=== PATIENT | male | born 1970 | race Caucasian/White ===

== ENCOUNTER 2017-04-13 14:16 | Emergency (ER) | payer OTHER ==
[~2017-04-13] VITALS: Ht 180.3 cm; Wt 113.4 kg
[~2017-04-13 14:16] MED LIST: TRAMADOL 50 MG50 MG PO
[2017-04-13] MEDS ORDERED: CYMBALTA20 MG PO (14:20)
[2017-04-13] MEDS ORDERED: ABILIFY10 MG PO (14:21)
[2017-04-13] MEDS ORDERED: PRINIVIL20 M1 PO (14:21)
[2017-04-13] MEDS ORDERED: MEDROLDOSEPACK PO (14:57)
[2017-04-13 15:13] VITALS: BP 118/94
== END 2017-04-13 15:15 | disposition home or self-care (01) ==
LOC: ER 14:16
DX: M25.521 Pain in right elbow (principal); M77.9 Enthesopathy, unspecified; M70.841 Other soft tissue disorders related to use, overuse and pressure, right hand; Z88.6 Allergy status to analgesic agent; Y93.89 Activity, other specified

== ENCOUNTER 2017-12-27 08:09 | Emergency (ER) | payer OTHER ==
[~2017-12-27] VITALS: Ht 180.3 cm; Wt 113.4 kg
[~2017-12-27 08:09] MED LIST changes: +ABILIFY10 MG PO; +CYMBALTA20 MG PO; +MEDROLDOSEPACK PO; +PRINIVIL20 M1 PO
[2017-12-27] MEDS ORDERED: SUMATRIPTA6 MG/0.5 M SUBQ (08:20)
[2017-12-27] MEDS ORDERED: LISINOPRIL20 MG PO (08:20)
[2017-12-27] MEDS ORDERED: CYMBALTA60 MG PO (08:37)
[2017-12-27] MEDS ORDERED: ARIPIPRAZOLE5 MG PO (08:37)
[2017-12-27] MEDS ORDERED: BUSPIRONE HCL10 MG PO (08:37)
[2017-12-27] MEDS ORDERED: TRAZODONE HCL50 MG PO (08:38)
[2017-12-27] MEDS ORDERED: MS CONTIN 30 MG30 M1 PO (08:39)
[2017-12-27] MEDS ORDERED: NAPROSYN500 MG PO (08:39)
[2017-12-27] MEDS ORDERED: OXYCODONE HCL10 MG PO (08:39)
[2017-12-27] MEDS ORDERED: PROMS25 WY RECTAL (09:10)
[2017-12-27] MEDS ORDERED: PHENERGAN 25 MG25 M1 PO (09:10)
[2017-12-27] MEDS ORDERED: BUTALB-APAP-CA1 EACH PO (09:22)
[2017-12-27 09:31] VITALS: BP 120/83
== END 2017-12-27 09:32 | disposition home or self-care (01) ==
LOC: ER 08:09
DX: G43.909 Migraine, unspecified, not intractable, without status migrainosus (principal); R11.0 Nausea; Z88.6 Allergy status to analgesic agent

== ENCOUNTER 2017-12-30 20:54 | Emergency (ER) | payer OTHER ==
[~2017-12-30] VITALS: Ht 180.3 cm; Wt 113.4 kg
[~2017-12-30 20:54] MED LIST changes: +ARIPIPRAZOLE5 MG PO; +BUSPIRONE HCL10 MG PO; +BUTALB-APAP-CA1 EACH PO; +CYMBALTA60 MG PO; +LISINOPRIL20 MG PO; +MS CONTIN 30 MG30 M1 PO; +NAPROSYN500 MG PO; +OXYCODONE HCL10 MG PO; +PHENERGAN 25 MG25 M1 PO; +PROMS25 WY RECTAL; +SUMATRIPTA6 MG/0.5 M SUBQ; +TRAZODONE HCL50 MG PO
[2017-12-30 21:52] LABS: ABSOLUTE NEUTROPHILS 4.3 thou/uL (1.4-8.2); BASOPHILS 1.3 % (0.0-2.0); EOSINOPHILS 2.2 % (0.0-3.0); HEMATOCRIT 41.5 % (42.0-52.0); HEMOGLOBIN 14.5 gm/dL (14.0-18.0); LYMPHOCYTES 27.9 % (24.0-44.0); MCH 32.4 pg (26.0-34.0); MCHC 34.8 g/dL (28.0-37.0); MCV 93.3 fL (80.0-100.0); MONOCYTES 6.8 % (1.0-8.0); PLATELET COUNT 465 thou/uL (150-400); POLYS 61.8 % (36.0-66.0); RBC 4.45 mil/uL (4.50-6.00); RDW 14.5 % (10.5-14.5)
[2017-12-30 22:03] LABS: CALCIUM 8.6 mg/dL (8.5-10.1); CREATININE 1.2 mg/dL (0.7-1.3); POTASSIUM 4.3 mmol/L (3.5-5.1)
[2017-12-30] MEDS ORDERED: FIORINAL 50-321 EACH PO ×2 (22:26→22:37)
[2017-12-30 22:44] VITALS: BP 118/85
== END 2017-12-30 22:44 | disposition home or self-care (01) ==
LOC: ER 20:54
PROVIDERS: Physician Assistant
DX: R51 Headache (principal); R11.0 Nausea; M54.9 Dorsalgia, unspecified; G89.29 Other chronic pain; Z88.6 Allergy status to analgesic agent; Z88.8 Allergy status to other drugs, medicaments and biological substances

== ENCOUNTER 2018-01-22 11:47 | Emergency (ER) | payer OTHER ==
[~2018-01-22] VITALS: Ht 180.3 cm; Wt 113.4 kg
[~2018-01-22 11:47] MED LIST changes: +FIORINAL 50-321 EACH PO
[2018-01-22 11:51] VITALS: BP 159/113
[2018-01-22] MEDS ORDERED: PHENERGAN 25 MG25 M1 PO (12:02)
[2018-01-22] MEDS ORDERED: FIORINAL CAPSUL1 CA1 PO (12:02)
== END 2018-01-22 12:19 | disposition home or self-care (01) ==
LOC: ER 11:47
DX: G43.909 Migraine, unspecified, not intractable, without status migrainosus (principal); M54.9 Dorsalgia, unspecified; G89.29 Other chronic pain; Z90.49 Acquired absence of other specified parts of digestive tract; Z88.8 Allergy status to other drugs, medicaments and biological substances; Z88.6 Allergy status to analgesic agent

== ENCOUNTER 2018-01-22 18:21 | Emergency (ER) | payer OTHER ==
[~2018-01-22] VITALS: Ht 180.3 cm; Wt 113.4 kg
[~2018-01-22 18:21] MED LIST changes: +FIORINAL CAPSUL1 CA1 PO
[2018-01-22 20:56] VITALS: BP 138/95
== END 2018-01-22 21:07 | disposition home or self-care (01) ==
LOC: ER 18:21
DX: G43.909 Migraine, unspecified, not intractable, without status migrainosus (principal); M54.9 Dorsalgia, unspecified; G89.29 Other chronic pain; Z90.49 Acquired absence of other specified parts of digestive tract; Z88.6 Allergy status to analgesic agent; Z88.8 Allergy status to other drugs, medicaments and biological substances

== ENCOUNTER 2018-01-26 07:25 | Emergency (ER) | payer OTHER ==
[~2018-01-26] VITALS: Ht 180.3 cm; Wt 113.4 kg
[2018-01-26] MEDS ORDERED: NORCO 5-325 TA1 EACH PO (07:49)
[2018-01-26 08:35] VITALS: BP 159/100
== END 2018-01-26 08:35 | disposition home or self-care (01) ==
LOC: ER 07:25
DX: S16.1XXA Strain of muscle, fascia and tendon at neck level, initial encounter (principal); G89.29 Other chronic pain; M54.9 Dorsalgia, unspecified; Z90.49 Acquired absence of other specified parts of digestive tract; Z88.8 Allergy status to other drugs, medicaments and biological substances; Z88.6 Allergy status to analgesic agent; Z76.5 Malingerer [conscious simulation]; V89.2XXA Person injured in unspecified motor-vehicle accident, traffic, initial encounter; Y93.89 Activity, other specified; Y92.89 Other specified places as the place of occurrence of the external cause; Y99.8 Other external cause status

== ENCOUNTER 2018-02-04 19:39 | Emergency (ER) | payer OTHER ==
[~2018-02-04] VITALS: Ht 180.3 cm; Wt 113.4 kg
[~2018-02-04 19:39] MED LIST changes: +NORCO 5-325 TA1 EACH PO
[2018-02-04] MEDS ORDERED: BUTALB-APAP-CA1 EACH PO (21:02)
[2018-02-04 21:25] VITALS: BP 145/82
== END 2018-02-04 21:33 | disposition home or self-care (01) ==
LOC: ER 19:39
DX: R51 Headache (principal); M54.9 Dorsalgia, unspecified; G89.29 Other chronic pain; Z90.49 Acquired absence of other specified parts of digestive tract; Z88.6 Allergy status to analgesic agent; Z88.8 Allergy status to other drugs, medicaments and biological substances

== ENCOUNTER 2018-02-10 07:22 | Emergency (ER) | payer OTHER ==
[~2018-02-10] VITALS: Ht 180.3 cm; Wt 113.4 kg
[2018-02-10 07:25] VITALS: BP 167/108
[2018-02-10] MEDS ORDERED: ABILIFY 5 MG TAB5 MG PO (07:28)
[2018-02-10] MEDS ORDERED: PREDNISONE 20 M20 MG PO (07:46)
[2018-02-10] MEDS ORDERED: PENICILLIN V P500 MG PO (07:46)
== END 2018-02-10 08:37 | disposition home or self-care (01) ==
LOC: ER 07:22
DX: K08.89 Other specified disorders of teeth and supporting structures (principal); G89.29 Other chronic pain; M54.9 Dorsalgia, unspecified; Z90.49 Acquired absence of other specified parts of digestive tract; Z88.8 Allergy status to other drugs, medicaments and biological substances; Z88.6 Allergy status to analgesic agent

== ENCOUNTER 2018-02-12 12:11 | Emergency (ER) | payer OTHER ==
[~2018-02-12] VITALS: Ht 180.3 cm; Wt 113.4 kg
[2018-02-12 12:11] VITALS: BP 145/116
[~2018-02-12 12:11] MED LIST changes: +ABILIFY 5 MG TAB5 MG PO; +PENICILLIN V P500 MG PO; +PREDNISONE 20 M20 MG PO
[2018-02-12] MEDS ORDERED: OMEPRAZOLE20 M2 PO (12:14)
[2018-02-12] MEDS ORDERED: NORCO 10-325 T1 EACH PO (12:54)
[2018-02-12] MEDS ORDERED: PENICILLIN VK500 M1 PO (12:54)
== END 2018-02-12 13:01 | disposition home or self-care (01) ==
LOC: ER 12:11
DX: K08.89 Other specified disorders of teeth and supporting structures (principal); R51 Headache; I10 Essential (primary) hypertension; F32.9 Major depressive disorder, single episode, unspecified; G89.29 Other chronic pain; M54.9 Dorsalgia, unspecified; Z90.49 Acquired absence of other specified parts of digestive tract; Z88.8 Allergy status to other drugs, medicaments and biological substances; Z88.6 Allergy status to analgesic agent

== ENCOUNTER 2018-02-19 14:57 | Emergency (ER) | payer OTHER ==
[~2018-02-19] VITALS: Ht 180.3 cm; Wt 113.4 kg
[~2018-02-19 14:57] MED LIST changes: +NORCO 10-325 T1 EACH PO; +OMEPRAZOLE20 M2 PO; +PENICILLIN VK500 M1 PO
[2018-02-19] MEDS ORDERED: PROPRANOLOL 4040 M1 PO (15:52)
[2018-02-19] MEDS ORDERED: PHENERGAN 25 MG25 M1 PO (15:52)
[2018-02-19] MEDS ORDERED: BUTALB-APAP-CA1 EACH PO (15:52)
[2018-02-19 16:26] VITALS: BP 178/114
== END 2018-02-19 16:29 | disposition home or self-care (01) ==
LOC: ER 14:57
DX: G43.009 Migraine without aura, not intractable, without status migrainosus (principal); M54.9 Dorsalgia, unspecified; G89.29 Other chronic pain; F32.9 Major depressive disorder, single episode, unspecified; Z90.49 Acquired absence of other specified parts of digestive tract; Z88.6 Allergy status to analgesic agent; Z88.8 Allergy status to other drugs, medicaments and biological substances

== ENCOUNTER 2018-03-03 22:02 | Emergency (ER) | payer OTHER ==
[~2018-03-03] VITALS: Ht 180.3 cm; Wt 117.9 kg
[~2018-03-03 22:02] MED LIST changes: +PROPRANOLOL 4040 M1 PO
[2018-03-03 22:39] LABS: ABSOLUTE NEUTROPHILS 6.2 thou/uL (1.4-8.2); BASOPHILS 0.1 % (0.0-2.0); EOSINOPHILS 2.7 % (0.0-3.0); HEMATOCRIT 46.8 % (42.0-52.0); HEMOGLOBIN 16.7 gm/dL (14.0-18.0); MCH 32.6 pg (26.0-34.0); MCHC 35.6 g/dL (28.0-37.0); MCV 91.5 fL (80.0-100.0); MONOCYTES 7.5 % (1.0-8.0); PLATELET COUNT 433 thou/uL (150-400); POLYS 69.7 % (36.0-66.0); RBC 5.11 mil/uL (4.50-6.00); RDW 14.8 % (10.5-14.5); WBC 8.9 thou/uL (4.0-11.0)
[2018-03-03 22:46] LABS: CALCIUM 9.1 mg/dL (8.5-10.1); POTASSIUM 4.2 mmol/L (3.5-5.1)
[2018-03-03 22:52] LABS: TOTAL BILIRUBIN 0.4 mg/dL (<0.1-1.0); TOTAL PROTEIN 7.9 g/dL (6.4-8.2)
[2018-03-03] MEDS ORDERED: BUTALB-APAP-CA1 EACH PO (23:10)
[2018-03-03 23:16] VITALS: BP 151/109
== END 2018-03-03 23:20 | disposition home or self-care (01) ==
LOC: ER 22:02
PROVIDERS: Emergency Medicine
DX: R51 Headache (principal); M54.9 Dorsalgia, unspecified; G89.29 Other chronic pain; F32.9 Major depressive disorder, single episode, unspecified; Z90.49 Acquired absence of other specified parts of digestive tract; Z88.8 Allergy status to other drugs, medicaments and biological substances; Z88.6 Allergy status to analgesic agent

== ENCOUNTER 2018-03-18 11:40 | Emergency (ER) | payer OTHER ==
[~2018-03-18] VITALS: Ht 180.3 cm; Wt 117.9 kg
[2018-03-18] MEDS ORDERED: BUTALB-APAP-CA1 EACH PO (13:22)
[2018-03-18 13:38] VITALS: BP 162/113
== END 2018-03-18 13:39 | disposition home or self-care (01) ==
LOC: ER 11:40
DX: G43.909 Migraine, unspecified, not intractable, without status migrainosus (principal); R00.0 Tachycardia, unspecified; F32.9 Major depressive disorder, single episode, unspecified; M54.9 Dorsalgia, unspecified; G89.29 Other chronic pain; Z88.5 Allergy status to narcotic agent; Z88.6 Allergy status to analgesic agent; Z88.8 Allergy status to other drugs, medicaments and biological substances

== ENCOUNTER 2018-04-25 19:38 | Emergency (ER) | payer OTHER ==
[~2018-04-25] VITALS: Ht 180.3 cm; Wt 117.9 kg
[~2018-04-25 19:38] MED LIST changes: +CARISOPRODOL 3350 MG PO; +PROPRANOLOL 1010 MG PO
[2018-04-25] MEDS ORDERED: BUTALB-APAP-CA1 EACH PO (21:34)
[2018-04-25 22:53] VITALS: BP 134/88
== END 2018-04-25 22:53 | disposition home or self-care (01) ==
LOC: ER 19:38
DX: G43.909 Migraine, unspecified, not intractable, without status migrainosus (principal); G89.29 Other chronic pain; Z88.6 Allergy status to analgesic agent; Z88.8 Allergy status to other drugs, medicaments and biological substances

== ENCOUNTER 2018-05-26 03:07 | Emergency (ER) | payer OTHER ==
[~2018-05-26] VITALS: Ht 180.3 cm; Wt 117.9 kg
[2018-05-26] MEDS ORDERED: TESSALON PERLE100 MG PO (04:23)
[2018-05-26] MEDS ORDERED: BUTALB-APAP-CA1 EACH PO (04:30)
== END 2018-05-26 08:01 | disposition home or self-care (01) ==
LOC: ER 03:07
DX: J06.9 Acute upper respiratory infection, unspecified (principal); G43.909 Migraine, unspecified, not intractable, without status migrainosus; G89.29 Other chronic pain; M54.9 Dorsalgia, unspecified; F32.9 Major depressive disorder, single episode, unspecified; J45.909 Unspecified asthma, uncomplicated; Z90.49 Acquired absence of other specified parts of digestive tract; Z88.8 Allergy status to other drugs, medicaments and biological substances; Z88.6 Allergy status to analgesic agent

== ENCOUNTER 2018-07-24 02:12 | Emergency (ER) | payer OTHER ==
[~2018-07-24] VITALS: Ht 180.3 cm; Wt 117.9 kg
[~2018-07-24 02:12] MED LIST changes: +TESSALON PERLE100 MG PO
[2018-07-24] MEDS ORDERED: LEXAPRO 10 MG T10 M2 PO (02:35)
[2018-07-24 03:15] VITALS: BP 138/88
== END 2018-07-24 03:16 | disposition home or self-care (01) ==
LOC: ER 02:12
DX: G43.819 Other migraine, intractable, without status migrainosus (principal); G89.29 Other chronic pain; M54.9 Dorsalgia, unspecified; F32.9 Major depressive disorder, single episode, unspecified; Z90.49 Acquired absence of other specified parts of digestive tract; Z88.8 Allergy status to other drugs, medicaments and biological substances; Z88.6 Allergy status to analgesic agent

== ENCOUNTER 2018-08-25 20:04 | Emergency (ER) | payer OTHER ==
[~2018-08-25] VITALS: Ht 180.3 cm; Wt 117.9 kg
[~2018-08-25 20:04] MED LIST changes: +LEXAPRO 10 MG T10 M2 PO
[2018-08-25 20:46] VITALS: BP 157/101
[2018-08-25] MEDS ORDERED: TYLENOL EXTRA500 MG PO (20:55)
[2018-08-25] MEDS ORDERED: FLONASE 0.05%50 MCG NASAL (20:55)
[2018-08-25] MEDS ORDERED: WAL-PHED SINUS1 EACH PO (20:55)
== END 2018-08-25 21:37 | disposition home or self-care (01) ==
LOC: ER 20:04
DX: G43.909 Migraine, unspecified, not intractable, without status migrainosus (principal); M54.9 Dorsalgia, unspecified; G89.29 Other chronic pain; F32.9 Major depressive disorder, single episode, unspecified; Z88.8 Allergy status to other drugs, medicaments and biological substances; Z88.6 Allergy status to analgesic agent; Z90.49 Acquired absence of other specified parts of digestive tract

== ENCOUNTER 2018-10-22 03:16 | Emergency (ER) | payer OTHER ==
[~2018-10-22] VITALS: Ht 180.3 cm; Wt 122.5 kg
[~2018-10-22 03:16] MED LIST changes: +FLONASE 0.05%50 MCG NASAL; +TYLENOL EXTRA500 MG PO; +WAL-PHED SINUS1 EACH PO
[2018-10-22] MEDS ORDERED: BUTALB-APAP-CA1 EACH PO (04:26)
[2018-10-22 05:11] VITALS: BP 132/90
== END 2018-10-22 05:12 | disposition home or self-care (01) ==
LOC: ER 03:16
DX: G43.909 Migraine, unspecified, not intractable, without status migrainosus (principal); G89.29 Other chronic pain; I10 Essential (primary) hypertension; Z88.6 Allergy status to analgesic agent; Z88.8 Allergy status to other drugs, medicaments and biological substances

== ENCOUNTER 2018-11-08 13:26 | Emergency (ER) | payer OTHER ==
[~2018-11-08] VITALS: Ht 180.3 cm; Wt 122.5 kg
[2018-11-08] MEDS ORDERED: BUTALB-APAP-CA1 EACH PO (14:09)
[2018-11-08] MEDS ORDERED: TESSALON PERLE100 MG PO (14:09)
[2018-11-08 14:48] VITALS: BP 154/87
== END 2018-11-08 14:20 | disposition home or self-care (01) ==
LOC: ER 13:26
DX: J30.9 Allergic rhinitis, unspecified (principal); G43.909 Migraine, unspecified, not intractable, without status migrainosus; G89.29 Other chronic pain; Z88.6 Allergy status to analgesic agent; Z88.8 Allergy status to other drugs, medicaments and biological substances

== ENCOUNTER 2018-11-29 15:56 | Emergency (ER) | payer OTHER ==
[~2018-11-29] VITALS: Ht 180.3 cm; Wt 122.5 kg
[2018-11-29] MEDS ORDERED: MOBIC7.5 MG PO (16:41)
[2018-11-29 16:53] VITALS: BP 139/99
== END 2018-11-29 16:53 | disposition home or self-care (01) ==
LOC: ER 15:56
DX: S46.912A Strain of unspecified muscle, fascia and tendon at shoulder and upper arm level, left arm, initial encounter (principal); X50.0XXA Overexertion from strenuous movement or load, initial encounter; Y93.89 Activity, other specified; Y92.89 Other specified places as the place of occurrence of the external cause; Y99.8 Other external cause status; G89.29 Other chronic pain; Z88.6 Allergy status to analgesic agent; Z88.8 Allergy status to other drugs, medicaments and biological substances; Z87.19 Personal history of other diseases of the digestive system

== ENCOUNTER 2019-02-15 02:54 | Emergency (ER) | payer OTHER ==
[~2019-02-15] VITALS: Ht 180.3 cm; Wt 122.5 kg
[~2019-02-15 02:54] MED LIST changes: +MOBIC7.5 MG PO
[2019-02-15] MEDS ORDERED: WELLBUTRIN XL150 MG PO (03:04)
[2019-02-15 04:53] VITALS: BP 147/101
== END 2019-02-15 04:53 | disposition home or self-care (01) ==
LOC: ER 02:54
DX: G43.909 Migraine, unspecified, not intractable, without status migrainosus (principal); M54.9 Dorsalgia, unspecified; G89.29 Other chronic pain; F32.9 Major depressive disorder, single episode, unspecified; Z88.8 Allergy status to other drugs, medicaments and biological substances; Z88.6 Allergy status to analgesic agent; Z90.49 Acquired absence of other specified parts of digestive tract

== ENCOUNTER 2019-04-07 09:45 | Emergency (ER) | payer OTHER ==
[~2019-04-07] VITALS: Ht 180.3 cm; Wt 122.5 kg
[~2019-04-07 09:45] MED LIST changes: +WELLBUTRIN XL150 MG PO
[2019-04-07 10:34] VITALS: BP 129/87
[2019-04-07] MEDS ORDERED: NORFLEX100 MG PO (11:35)
[2019-04-07] MEDS ORDERED: LIDOCAINE PAIN1 EACH TOP (11:35)
[2019-04-07] MEDS ORDERED: APAP650 PO (11:35)
== END 2019-04-07 10:34 | disposition home or self-care (01) ==
LOC: ER 09:45
DX: S16.1XXA Strain of muscle, fascia and tendon at neck level, initial encounter (principal); M54.9 Dorsalgia, unspecified; G89.29 Other chronic pain; F32.9 Major depressive disorder, single episode, unspecified; Z88.8 Allergy status to other drugs, medicaments and biological substances; Z88.6 Allergy status to analgesic agent; Z90.49 Acquired absence of other specified parts of digestive tract; V89.2XXA Person injured in unspecified motor-vehicle accident, traffic, initial encounter; Y92.89 Other specified places as the place of occurrence of the external cause; Y93.89 Activity, other specified; Y99.8 Other external cause status

== ENCOUNTER 2019-05-14 18:09 | Emergency (ER) | payer OTHER ==
[~2019-05-14] VITALS: Ht 180.3 cm; Wt 122.5 kg
[~2019-05-14 18:09] MED LIST changes: +APAP650 PO; +LIDOCAINE PAIN1 EACH TOP; +NORFLEX100 MG PO
[2019-05-14] MEDS ORDERED: ZOFRAN ODT4 MG PO (19:08)
[2019-05-14] MEDS ORDERED: BUTALB-APAP-CA1 EACH PO (19:08)
[2019-05-14 19:30] VITALS: BP 141/101
== END 2019-05-14 19:30 | disposition home or self-care (01) ==
LOC: ER 18:09
DX: G43.001 Migraine without aura, not intractable, with status migrainosus (principal); G89.29 Other chronic pain; M54.9 Dorsalgia, unspecified; F32.9 Major depressive disorder, single episode, unspecified; Z90.49 Acquired absence of other specified parts of digestive tract; Z88.8 Allergy status to other drugs, medicaments and biological substances; Z88.6 Allergy status to analgesic agent

== ENCOUNTER 2019-05-20 17:42 | Emergency (ER) | payer OTHER ==
[~2019-05-20] VITALS: Ht 180.3 cm; Wt 127.0 kg
[~2019-05-20 17:42] MED LIST changes: +ZOFRAN ODT4 MG PO
[2019-05-20 17:46] VITALS: BP 138/98
[2019-05-20] MEDS ORDERED: NORCO 5-325 TA1 EAC1 PO (18:36)
[2019-05-20] MEDS ORDERED: CYCLOBENZAPRINE5 MG PO (18:36)
== END 2019-05-20 18:45 | disposition home or self-care (01) ==
LOC: ER 17:42
DX: S39.012A Strain of muscle, fascia and tendon of lower back, initial encounter (principal); G89.29 Other chronic pain; F32.9 Major depressive disorder, single episode, unspecified; Z90.49 Acquired absence of other specified parts of digestive tract; Z88.6 Allergy status to analgesic agent; Z88.8 Allergy status to other drugs, medicaments and biological substances; X50.0XXA Overexertion from strenuous movement or load, initial encounter; Y92.89 Other specified places as the place of occurrence of the external cause; Y93.89 Activity, other specified; Y99.8 Other external cause status

== ENCOUNTER 2019-06-08 20:00 | Emergency (ER) | payer OTHER ==
[~2019-06-08] VITALS: Ht 180.3 cm; Wt 127.0 kg
[~2019-06-08 20:00] MED LIST changes: +CYCLOBENZAPRINE5 MG PO; +NORCO 5-325 TA1 EAC1 PO
[2019-06-08 20:01] VITALS: BP 145/104
[2019-06-08] MEDS ORDERED: BUTALB-APAP-CA1 EACH PO (20:09)
== END 2019-06-08 20:39 | disposition home or self-care (01) ==
LOC: ER 20:00
DX: G43.909 Migraine, unspecified, not intractable, without status migrainosus (principal); M54.9 Dorsalgia, unspecified; G89.29 Other chronic pain; F32.9 Major depressive disorder, single episode, unspecified; Z90.49 Acquired absence of other specified parts of digestive tract; Z88.6 Allergy status to analgesic agent; Z88.8 Allergy status to other drugs, medicaments and biological substances